=== PATIENT | male | born 1990 | race American Indian/Alaskan Native ===

== ENCOUNTER 2021-01-14 04:46 | Emergency (ER) | payer SELFPAY ==
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
[2021-01-14 07:30] LABS: Basophils % (Auto) 0.3 % (0.0-1.8); Eosinophils # (Auto) 0.1 K/mm3 (0.0-0.4); Eosinophils % (Auto) 0.5 % (0.0-4.3); Hematocrit 41.2 % (35.5-45.6); Hemoglobin 14.2 gm/dl (11.8-15.2); Lymphocytes # (Auto) 1.8 K/mm3 (1.2-5.4); Lymphocytes % (Auto) 10.5 % (13.4-35.0); Mean Corpuscular HGB Conc 34 % (32-34); Mean Corpuscular Volume 94 fl (84-94); Monocytes # (Auto) 0.8 K/mm3 (0.0-0.8); Monocytes % (Auto) 4.5 % (0.0-7.3); Platelet Count 282 K/mm3 (140-440)
[2021-01-14] MEDS ORDERED: LIDOCAINE 2%/EPINEPHRINE 1:200,000 VIAL (20 ML) INFILTRATI ONE (07:30)
[2021-01-14 07:34] LABS: BUN/Creatinine Ratio 23; Blood Urea Nitrogen 18 mg/dL (9-20); Calcium 10.2 mg/dL (8.4-10.2); Hemolysis Index 5
[2021-01-14 07:59] VITALS: BP 136/79
[2021-01-14] MEDS ORDERED: SODIUM CHLORIDE 0.9% 1000 ML 1,000 ML IV SCH (08:00)
[2021-01-14] MEDS ORDERED: ONDANSETRON 4 MG/2 ML INJ IV SCH (08:00)
[2021-01-14] MEDS ORDERED: SODIUM CHLORIDE 0.9% IRR 500 ML BOTTLE IR SCH (08:00)
[2021-01-14] MEDS ORDERED: LIDOCAINE 1%/EPINEPHRINE 1:100,000 VIAL (20 ML) INFILTRATI SCH (08:00)
[2021-01-14] MEDS ORDERED: SODIUM CHLORIDE 0.9% 1000 ML 1,000 ML ONE (08:25)
[2021-01-14] MEDS ORDERED: HYDROmorphone 1 MG/1 ML INJ IV SCH (08:30)
[2021-01-14] MEDS ORDERED: ceFAZolin/NS 1 GM/50 ML 1 GM/50 ML BAG IV ONE (08:39)
[2021-01-14] MEDS ORDERED: TETANUS,DIPH,PERTUSS(ACELL) VACCINE 0.5 ML SYRINGE IM ONE (09:23)
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
[2021-01-14] MEDS ORDERED: KETOROLAC 30 MG/1 ML INJ ONE (10:44)
[2021-01-14] MEDS ORDERED: KETOROLAC 30 MG/1 ML INJ IV ONE (10:59)
[2021-01-14] MEDS ORDERED: HYDROcodone/ACETAMINOPHEN 5-325 MG TAB PO ONE (11:49)
== END 2021-01-14 12:03 | disposition home or self-care (01) ==
LOC: ED 04:46
DX: S31.119A Laceration without foreign body of abdominal wall, unspecified quadrant without penetration into peritoneal cavity, initial encounter (principal); S41.112A Laceration without foreign body of left upper arm, initial encounter; S41.111A Laceration without foreign body of right upper arm, initial encounter; F17.200 Nicotine dependence, unspecified, uncomplicated; R10.9 Unspecified abdominal pain; X99.1XXA Assault by knife, initial encounter; Y93.89 Activity, other specified; Y92.89 Other specified places as the place of occurrence of the external cause; Y99.8 Other external cause status
CPT/HCPCS: 36415; 74177; 80048; 85025; 90471; 90715; 96361; 96365; 96375; 99284; J0690; J1170; J1885; J2405; J7030; Q9967

== ENCOUNTER 2021-01-26 16:31 | Emergency (ER) | payer SELFPAY ==
[2021-01-26 20:04] VITALS: BP 111/64
--- NOTE | 2021-01-26 20:22 | Emergency Department Report ---
Suture/Staple Removal - HPI Chief Complaint: Laceration/Recheck/Suture Stated Complaint: SUTURE REMOVAL Time Seen by Provider: 01/26/21 20:21 When Sutures or Ayala Placed: 11-14 Days Ago Wound Location: Right forearm, left forearm, and left lower back ED Review of Systems ROS: Stated complaint: SUTURE REMOVAL Other details as noted in HPI Comment: All other systems reviewed and negative Skin: other (laceration s/p suture repair ) ED Past Medical Hx - Past Medical History Previous Medical History?: No - Surgical History Past Surgical History?: No Hx Coronary Stent: No Hx Open Heart Surgery: No Hx Pacemaker: No Hx Internal Defibrillator: No Hx Cholecystectomy: No Hx Breast Surgery: No - Social History Smoking Status: Current Every Day Smoker (1/2 pack/day) Substance Use Type: Alcohol (Occasional) - Medications Home Medications: Home Medications Medication Instructions Recorded Confirmed Last Taken Type HYDROcodone/APAP 5-325 [[place] 1 - 2 each PO Q6HR PRN #14 tablet 01/14/21 Unknown Rx 5/325] Ibuprofen [Motrin 800 MG tab] 800 mg PO Q8HR PRN #20 tablet 01/14/21 Unknown Rx cephALEXin [Keflex] 500 mg PO Q8HR #21 cap 01/14/21 Unknown Rx Suture Removal Exam - Exam General: Vital signs noted. No distress. Alert and acting appropriately. Wound: No Pathologic Erythema, No Tenderness, No Drainage, No Pus, No Wound Dehiscence Other Systems: All other systems reviewed and are unremarkable. ED Course Vital Signs 01/26/21 20:03 Temperature 98 F Pulse Rate 74 Respiratory 16 Rate Blood Pressure 111/64 [Right] O2 Sat by Pulse 98 Oximetry - Procedure Description Procedures done: Suture removal. Location: Right forearm, left forearm, left lower back. All sutures removed. No apparent wound dehiscence, no signs of infection, wounds healing well Critical care attestation.: If time is entered above; I have spent that time in minutes in the direct care of this critically ill patient, excluding procedure time. ED Disposition Clinical Impression: Visit for suture removal Disposition: HOME / SELF CARE / HOMELESS Is pt being admited?: No Does the pt Need Aspirin: No Condition: Stable Instructions: Incision Care, Adult, [id number] Additional Instructions: COntinue keeping wound clean daily with soap and water. Apply thin layer neosporin after clean. Follow up with PCP as needed. Referrals: JOSE A LIANG MD [Staff Physician] - 3-5 Days Time of Disposition: 20:35
== END 2021-01-26 20:47 | disposition home or self-care (01) ==
LOC: ED 16:31
DX: S41.112D Laceration without foreign body of left upper arm, subsequent encounter (principal); X58.XXXD Exposure to other specified factors, subsequent encounter